=== PATIENT | female | born 1990 | race African-American/Black ===

== ENCOUNTER 2019-05-26 12:42 | Emergency (ER) | payer BC, OTHER, SELFPAY | END 2019-05-26 14:37 | disposition home or self-care (01) | LOC: ERS 12:42 | DX: R55 Syncope and collapse (principal) | CPT/HCPCS: 93005 ==

== ENCOUNTER 2021-08-07 20:52 | Emergency (ER) | payer BC, SELFPAY ==
[2021-08-07] MEDS ORDERED: Magnesium 2 GM/50 ML BAG (IN WATER) ONE (21:36)
[2021-08-07] MEDS ORDERED: Ketorolac Tromethamine 30 MG/ML VIAL ONE (21:36)
[2021-08-07] MEDS ORDERED: Acetaminophen 500 MG TAB ONE (21:37)
== END 2021-08-08 00:15 | disposition home or self-care (01) ==
LOC: ERS 20:52
DX: R51.9 Headache, unspecified (principal)
CPT/HCPCS: 96361; 96365; 96375; J1885; J3475

== ENCOUNTER 2024-11-23 19:18 | Emergency (ER) | payer OTHER ==
[2024-11-23] MEDS ORDERED: Ketorolac Tromethamine 30 MG (1 mL) VIAL ONE (23:30)
[2024-11-24 00:17] LABS: #Basophils 0.04 10x3/uL (0.0-0.2); #Eosinophils 0.09 10x3/uL (0.0-0.7); #Monocytes 0.63 10x3/uL (0.11-0.59); #Neutrophils 4.79 10x3/uL (1.40-6.50); %Basophils 0.5 % (0.0-1.0); %Eosinophils 1.0 % (0.0-10.0); %Lymphocytes 35.2 % (21.0-51.0); %Monocytes 7.3 % (0.0-10.0); %Neutrophils 55.8 % (42.0-75.0); Hematocrit 41.7 % (36.0-47.0); Hemoglobin 13.4 g/dL (12.0-16.0); Mean Corpuscular Hemoglobin 27.2 pg (27.0-31.0); Mean Corpuscular Volume 84.8 fL (78.0-98.0); Platelet Count 263 10x3/uL (130-400); Red Blood Cell (RBC) Count 4.92 mill/uL (4.20-5.40); White Blood Cell (WBC) Count 8.59 10x3/uL (4.8-10.8)
[2024-11-24 00:31] LABS: ALT (SGPT) 13 U/L (Less than 34); AST (SGOT) 22 U/L (11-34); Albumin 3.9 g/dL (3.1-4.5); Alkaline Phosphatase 103 U/L (40-110); Anion Gap 13 mmol/L (10-20); BUN (Urea Nitrogen) 9 mg/dL (7.0-18.7); Bilirubin, Total 0.4 mg/dL (0.3-1.2); Calc. Creatinine Clearance 0 mL/min (70-130); Calcium 9.3 mg/dL (7.8-10.44); Carbon Dioxide 26 mmol/L (22-29); Chloride 102 mmol/L (98-107); Globulin 4.2 g/dL (2.4-3.5); Glucose 76 mg/dL (70-105); Potassium 3.5 mmol/L (3.5-5.1); Sodium 137 mmol/L (136-145)
[2024-11-24 00:46] LABS: Magnesium 1.9 mg/dL (1.6-2.6)
[2024-11-24 03:45] LABS: Free T4 (Free Thyroxine) 0.87 ng/dL (0.70-1.48); Thyroid Stimulating Hormone 1.6255 uIU/mL (0.35-4.94); Vitamin B12 373.0 pg/mL (211-911)
== END 2024-11-24 03:53 | disposition home or self-care (01) ==
LOC: ERS 19:18
DX: S92.355A Nondisplaced fracture of fifth metatarsal bone, left foot, initial encounter for closed fracture (principal); X58.XXXA Exposure to other specified factors, initial encounter
CPT/HCPCS: 36415; 80053; 82607; 83735; 84439; 84443; 85025; 96374; J1885